=== PATIENT | male | born 1975 | race Caucasian/White ===

== ENCOUNTER → 2021-06-18 | Outpatient (CLI) | payer MEDICAID | END | disposition home or self-care (01) | LOC: RAD 15:06 | PROVIDERS: ATTEND Podiatrist Foot & Ankle Surgery | DX: M25.571 Pain in right ankle and joints of right foot (principal); M25.572 Pain in left ankle and joints of left foot | CPT/HCPCS: 73610 ==

== ENCOUNTER 2022-08-18 18:37 | Emergency (ER) | payer MEDICAID, OTHER ==
[~2022-08-18] VITALS: Ht 180.3 cm; Wt 90.0 kg
[2022-08-18 18:39] VITALS: O2SAT 100
[2022-08-18 19:39] LABS: BASOPHILS % 0.8 % (0.0-2.0); EOSINOPHILS % 3.9 % (0.0-5.0); HEMATOCRIT. 40.9 % (42.0-52.0); HEMOGLOBIN. 14.4 g/dL (14.0-18.0); LYMPHOCYTES % 18.1 % (20.0-50.0); MEAN CORPUSCULAR HEMOGLOBIN 30.9 pg (28.0-32.0); MEAN CORPUSCULAR VOLUME 87.9 fL (80.0-94.0); MEAN PLATELET VOLUME 8.9 fl (7.4-10.4); MONOCYTES % 8.6 % (2.0-8.0); NEUTROPHILS % 68.6 % (40.0-76.0); PLATELET 172 x1000/uL (130-400); RED BLOOD CELL COUNT 4.65 mill/uL (4.7-6.1); RED CELL DISTRIBUTION WIDTH 12.8 % (11.6-14.6)
[2022-08-18 19:47] LABS: CHLORIDE 104 mEq/L (98-107)
[2022-08-18 19:51] LABS: INR 1.2; PROTHROMBIN TIME 12.6 sec (9.6-11.0)
[2022-08-18] MEDS ORDERED: MAG-55 MT (20:24)
[2022-08-18] MEDS ORDERED: FAMO40TA70 MT (20:24)
[2022-08-18 20:32] VITALS: BP 127/76; PULSE 75; RESP 12; TEMP 98.8
== END 2022-08-18 20:39 | disposition home or self-care (01) ==
LOC: ER 18:37
DX: R07.89 Other chest pain (principal); K59.00 Constipation, unspecified; F41.9 Anxiety disorder, unspecified; F12.10 Cannabis abuse, uncomplicated; Z87.891 Personal history of nicotine dependence
CPT/HCPCS: 36415; 71045; 80053; 83880; 84484; 85025; 93005; 99285